=== PATIENT | female | born 1955 | race African-American/Black ===

== ENCOUNTER → 2017-08-10 | Day surgery (SDC) | payer MEDICAID ==
[~2017-08-10] MED LIST: FAMO-136 PO; FESO4TAB PO; ISOVUE-M 200 20 ML VIAL IT ONE; LEVO75 PO; NAPR220C15 PO; PROP40TA7 PO
[2017-08-10 09:24] LABS: PARTIAL THROMBOPLASTIN TIME 25.9 SEC (26.3-35.5); PROTHROMBIN TIME 10.5 SEC (9.6-11.6)
== END | disposition home or self-care (01) ==
LOC: RAH 07:34
PROVIDERS: ATTEND Neuromusculoskeletal Medicine & OMM
DX: M51.26 Other intervertebral disc displacement, lumbar region (principal); M96.1 Postlaminectomy syndrome, not elsewhere classified; G89.4 Chronic pain syndrome; Z98.890 Other specified postprocedural states; I10 Essential (primary) hypertension; Z68.33 Body mass index [BMI] 33.0-33.9, adult; Z79.899 Other long term (current) drug therapy; R79.1 Abnormal coagulation profile
CPT/HCPCS: 36415; 62304; 72129; 72132; 85610; 85730; Q9966; 62303

== ENCOUNTER → 2017-10-04 | Outpatient (CLI) | payer MEDICAID ==
[~2017-10-04] MED LIST changes: -ISOVUE-M 200 20 ML VIAL IT ONE
== END | disposition home or self-care (01) ==
LOC: RAH 15:12
PROVIDERS: ATTEND Neuromusculoskeletal Medicine & OMM
DX: M54.6 Pain in thoracic spine (principal); M96.1 Postlaminectomy syndrome, not elsewhere classified
CPT/HCPCS: 72080

== ENCOUNTER → 2018-07-11 | Outpatient (CLI) | payer MEDICARE | END | disposition home or self-care (01) | LOC: RAH 13:10 | PROVIDERS: ATTEND Neuromusculoskeletal Medicine & OMM | DX: M47.896 Other spondylosis, lumbar region (principal); M51.26 Other intervertebral disc displacement, lumbar region; M25.78 Osteophyte, vertebrae | CPT/HCPCS: 72131 ==

== ENCOUNTER 2018-08-10 10:43 | Emergency (ER) | payer MEDICARE | END 2018-08-10 13:34 | disposition home or self-care (01) | LOC: EDH 10:43 | DX: M54.16 Radiculopathy, lumbar region (principal); M79.661 Pain in right lower leg; I10 Essential (primary) hypertension; Z90.710 Acquired absence of both cervix and uterus; Z96.649 Presence of unspecified artificial hip joint | CPT/HCPCS: 72100; 93971 ==

== ENCOUNTER → 2018-09-22 | Outpatient (CLI) | payer MEDICARE | END | disposition home or self-care (01) | LOC: RAH 14:38 | PROVIDERS: ATTEND Neuromusculoskeletal Medicine & OMM | DX: M16.12 Unilateral primary osteoarthritis, left hip (principal); M47.818 Spondylosis without myelopathy or radiculopathy, sacral and sacrococcygeal region | CPT/HCPCS: 72200; 73521 ==

== ENCOUNTER 2020-08-28 16:14 | Observation (INO) | payer MEDICARE ==
[~2020-08-28] VITALS: Ht 170.2 cm; Wt 109.9 kg
[2020-08-28 16:43] LABS: BASOPHILS % (AUTO) 0.3 % (0.0-5.0); EOSINOPHILS % (AUTO) 3.3 % (0.0-8.0); HEMATOCRIT 23.1 % (36-48); LYMPHOCYTES % (AUTO) 22.3 % (21.0-51.0); MEAN CORPUSCULAR HEMOGLOBIN 24.5 pg (27.0-33.0); MEAN CORPUSCULAR HGB CONC 29.4 g/dL (32.0-36.0); MEAN CORPUSCULAR VOLUME 83.4 fL (79-99); MONOCYTES % (AUTO) 12.5 % (3.0-13.0); NEUTROPHILS % (AUTO) 61.2 % (40.0-77.0); PLATELET COUNT (AUTO) 305 K/uL (130-400); RED BLOOD CELL COUNT(AUTO) 2.77 MIL/uL (4.00-5.50); RED CELL DISTRIBUTION WIDTH 16.9 % (11.0-15.5); WHITE BLOOD COUNT (AUTO) 7.6 K/uL (4.8-10.8)
[2020-08-28 16:53] LABS: APPEARANCE,URINE Clear (CLEAR); BILIRUBIN,URINE Negative (NEGATIVE); COLOR,URINE Yellow (YELLOW); GLUCOSE, URINE (UA) Negative (NEGATIVE); KETONES,URINE Negative (NEGATIVE); LEUKOCYTE ESTERASE ,URINE Small (NEGATIVE); NITRATE,URINE Negative (NEGATIVE); OCCULT BLOOD,URINE Negative (NEGATIVE); PH,URINE 6.5 (5.0-8.0); PROTEIN,URINE Negative (NEGATIVE); UROBILINOGEN,URINE 0.2 mg/dL (0.2-1.0)
[2020-08-28 16:54] LABS: CREATININE 1.1 mg/dL (0.5-1.5); POTASSIUM 4.1 mmol/L (3.5-5.1)
[2020-08-28 16:58] LABS: ALBUMIN 3.7 g/dL (3.5-5.0); BILIRUBIN,TOTAL 0.2 mg/dL (0.2-1.0); TOTAL PROTEIN, SERUM 7.5 g/dL (6.0-8.3)
[2020-08-28 16:59] LABS: INR 1.05 (0.85-1.15); PROTHROMBIN TIME 11.4 SEC (9.6-11.6)
[2020-08-28 17:00] LABS: BACTERIA,URINE Few /HPF (None Seen); RBC,URINE 0-1 /HPF (0-1); SQUAMOUS EPITHELIAL CELL,UR Moderate /HPF (0-2)
[2020-08-28 17:00] LABS: PARTIAL THROMBOPLASTIN TIME 21.9 SEC (26.3-35.5)
[2020-08-28] MEDS ORDERED: SODIUM CHLORIDE 0.9% 250 ML IV ONE (18:36)
[2020-08-28 19:19] LABS: RETICULOCYTE % (AUTO) 4.07 % (0.42-2.23)
[2020-08-28] MEDS ORDERED: DiphenhydrAMINE HCL 50 MG/ML VIAL IV PRN (22:15)
[2020-08-28] MEDS: SODIUM CHLORIDE 0.9% 1000ML 1,000 ML IV SCH (22:15)
[2020-08-28] MEDS ORDERED: ZOLPIDEM TARTRATE 5 MG TAB PO PRN (22:15)
[2020-08-28] MEDS ORDERED: LACTULOSE 20 GM/30 ML UDCUP PO PRN (22:15)
[2020-08-28] MEDS ORDERED: ONDANSETRON HCL 4 MG/2 ML VIAL IV PRN (22:15)
[2020-08-29 00:52] LABS: BASOPHILS % (AUTO) 0.3 % (0.0-5.0); EOSINOPHILS % (AUTO) 3.5 % (0.0-8.0); LYMPHOCYTES % (AUTO) 22.7 % (21.0-51.0); MEAN CORPUSCULAR HEMOGLOBIN 25.5 pg (27.0-33.0); MEAN CORPUSCULAR HGB CONC 30.4 g/dL (32.0-36.0); MEAN CORPUSCULAR VOLUME 83.9 fL (79-99); MONOCYTES % (AUTO) 10.1 % (3.0-13.0); NEUTROPHILS % (AUTO) 63.1 % (40.0-77.0); PLATELET COUNT (AUTO) 284 K/uL (130-400); RED BLOOD CELL COUNT(AUTO) 2.86 MIL/uL (4.00-5.50); RED CELL DISTRIBUTION WIDTH 16.9 % (11.0-15.5); WHITE BLOOD COUNT (AUTO) 7.7 K/uL (4.8-10.8)
[2020-08-29] MEDS: PROPRANOLOL HCL 20 MG TAB PO SCH ×2 (03:00→16:10)
[2020-08-29] MEDS ORDERED: ACETAMINOPHEN 325 MG TAB ONE (03:27)
[2020-08-29] MEDS ORDERED: SODIUM CHLORIDE 0.9% 1000ML 1,000 ML IV ONE (04:03)
[2020-08-29 05:29] LABS: BASOPHILS % (AUTO) 0.4 % (0.0-5.0); EOSINOPHILS % (AUTO) 3.5 % (0.0-8.0); HEMATOCRIT 24.6 % (36-48); LYMPHOCYTES % (AUTO) 24.7 % (21.0-51.0); MEAN CORPUSCULAR HGB CONC 29.7 g/dL (32.0-36.0); MEAN CORPUSCULAR VOLUME 84.2 fL (79-99); MONOCYTES % (AUTO) 11.5 % (3.0-13.0); NEUTROPHILS % (AUTO) 59.5 % (40.0-77.0); NUCLEATED RED BLOOD CELLS 0.3 % (0.0-0.19); PLATELET COUNT (AUTO) 197 K/uL (130-400); RED BLOOD CELL COUNT(AUTO) 2.92 MIL/uL (4.00-5.50); RED CELL DISTRIBUTION WIDTH 16.7 % (11.0-15.5); WHITE BLOOD COUNT (AUTO) 7.4 K/uL (4.8-10.8)
[2020-08-29] MEDS: SODIUM CHLORIDE 0.9% 1000ML 1,000 ML IV SCH ×2 (08:15→18:15)
[2020-08-29 08:35] VITALS: BP 150/80
[2020-08-29] MEDS: PANTOPRAZOLE 40 MG/VIAL IVP SCH (09:00)
[2020-08-29 11:53] VITALS: BP 157/82
[2020-08-29 11:58] LABS: HEMATOCRIT 26.6 % (36-48)
[2020-08-29] MEDS ORDERED: BUPR100T13 PO (11:58)
[2020-08-29] MEDS ORDERED: ATOR10 PO (11:58)
[2020-08-29 16:52] VITALS: BP 159/75
[2020-08-29 19:42] VITALS: BP 150/81
[2020-08-29] MEDS ORDERED: BISACODYL 5 MG TABLET.DR PO SCH (20:30)
[2020-08-29] MEDS: ACETAMINOPHEN 325 MG TAB PO PRN (22:27)
[2020-08-29] MEDS ORDERED: MAGNESIUM CITRATE 296 ML SOLUTION PO ONE (22:30)
[2020-08-29 23:44] VITALS: BP 158/75
[2020-08-30] VITALS (17 sets, daily range): BP systolic 112–161; BP diastolic 40–93
[2020-08-30] MEDS ORDERED: MAGNESIUM CITRATE 296 ML SOLUTION PO ONE (00:30)
[2020-08-30] MEDS: PROPRANOLOL HCL 20 MG TAB PO SCH ×2 (03:45→16:31)
[2020-08-30] MEDS: SODIUM CHLORIDE 0.9% 1000ML 1,000 ML IV SCH (04:13)
[2020-08-30 06:00] LABS: HEMATOCRIT 26.9 % (36-48)
[2020-08-30 06:13] LABS: % IRON SATURATION 3.6 % (22-44)
[2020-08-30 06:35] LABS: CREATININE 0.9 mg/dL (0.5-1.5); POTASSIUM 3.9 mmol/L (3.5-5.1)
[2020-08-30] MEDS: ACETAMINOPHEN 325 MG TAB PO PRN (08:22)
[2020-08-30] MEDS ORDERED: MIDAZOLAM HCL 1 MG/ML 2ML VIAL ONE (09:59)
[2020-08-30] MEDS ORDERED: FENTANYL CITRATE PF 50 MCG/1 ML 2ML VIAL ONE (09:59)
[2020-08-30] MEDS ORDERED: FLUMAZENIL 0.1MG/1ML 5ML VIAL IV ONE (09:59)
[2020-08-30] MEDS ORDERED: MIDAZOLAM HCL 1 MG/ML 2ML VIAL IV SCH (10:45)
[2020-08-30] MEDS ORDERED: FENTANYL CITRATE PF 50 MCG/1 ML 2ML VIAL IVP SCH (10:45)
[2020-08-30] MEDS ORDERED: SUMA25TA9 PO (11:38)
[2020-08-30] MEDS ORDERED: SUMATRIPTAN SUCCINATE 25 MG TABLET PO SCH (12:00)
[2020-08-30] MEDS: PANTOPRAZOLE 40 MG/VIAL IVP SCH (12:12)
[2020-08-30] MEDS ORDERED: SUMATRIPTAN SUCCINATE 25 MG TABLET PO PRN (12:15)
[2020-08-30] MEDS ORDERED: PANT40TA PO (14:26)
[2020-08-30] MEDS ORDERED: SUCR1TAB28 PO (15:14)
== END 2020-08-30 17:57 | disposition home or self-care (01) ==
LOC: EDH 16:14 → INTOOBSV 22:04 → EDHIP 22:04 → OBSVTOIN 22:04 → 3BH 08-29 08:28
PROVIDERS: ADMIT Internal Medicine; ATTEND Internal Medicine
DX: K25.9 Gastric ulcer, unspecified as acute or chronic, without hemorrhage or perforation (principal); Z20.822 Contact with and (suspected) exposure to COVID-19; D64.9 Anemia, unspecified; K29.70 Gastritis, unspecified, without bleeding; K57.30 Diverticulosis of large intestine without perforation or abscess without bleeding; I10 Essential (primary) hypertension; R42 Dizziness and giddiness; M19.90 Unspecified osteoarthritis, unspecified site; E03.9 Hypothyroidism, unspecified; E66.01 Morbid (severe) obesity due to excess calories; Z96.652 Presence of left artificial knee joint; Z79.899 Other long term (current) drug therapy; Z68.37 Body mass index [BMI] 37.0-37.9, adult
CPT/HCPCS: 36415 ×3; 36430; 43239; 45378; 80048; 80053; 81001; 82607; 83010; 83540; 83550; 83615; 83880; 84484; 85014 ×2; 85018 ×2; 85025 ×3; 85045; 85610; 85730; 86850; 86900; 86901; 86923; 87426; 88305; 88342; 96361 ×2; 96374; 96376; 99285; A4606; A4620; C9113 ×3; G0378 ×42; J2250; J3010; J7030; J7050; P9016; U0003; J3490

== ENCOUNTER → 2023-10-17 | Outpatient (CLI) | payer OTHER, MEDICARE ==
[~2023-10-17] MED LIST changes: +ATOR10 PO; +BUPR100T13 PO; -FAMO-136 PO; -NAPR220C15 PO; +PANT40TA PO; +SUCR1TAB28 PO; +SUMA25TA9 PO
[2023-10-17] MEDS: REGADENOSON 0.4 MG/5 ML PF SYG IVP ONE (14:51)
== END | disposition home or self-care (01) ==
LOC: SHCH 09:03
PROVIDERS: ATTEND Internal Medicine Cardiovascular Disease
DX: I25.10 Atherosclerotic heart disease of native coronary artery without angina pectoris (principal); I25.42 Coronary artery dissection
CPT/HCPCS: 78452; 96374; 93017; J2785; A9500 ×2

== ENCOUNTER → 2024-01-13 | Outpatient (CLI) | payer OTHER, MEDICARE ==
[2024-01-13 15:40] LABS: ALBUMIN 3.5 g/dL (3.5-5.0); BILIRUBIN,TOTAL 0.4 mg/dL (0.2-1.0); CREATININE 0.7 mg/dL (0.5-1.0); POTASSIUM 3.8 mmol/L (3.5-5.1); TOTAL PROTEIN, SERUM 7.4 g/dL (6.0-8.3)
== END | disposition home or self-care (01) ==
LOC: LAB 11:40
PROVIDERS: ATTEND Internal Medicine Cardiovascular Disease
DX: I10 Essential (primary) hypertension (principal); I25.84 Coronary atherosclerosis due to calcified coronary lesion
CPT/HCPCS: 36415; 80053

== ENCOUNTER 2024-12-04 13:53 | Emergency (ER) | payer OTHER, MEDICAID ==
[~2024-12-04] VITALS: Ht 170.2 cm; Wt 90.7 kg
--- NOTE | 2024-12-04 14:07 | EKG ---
[facility] Test Date: 2024-12-04 Test Time: 14:03:53 Pat Name: TIO ROBLES Department: ED Room: Gender: F Vp Care Management: [id number] : 1955 Requested By: BRADLEY PALACIO Order Number: [id number] Reading MD: Barron Lawson Measurements Intervals [place] Rate: 78 P: 32 [place]: 196 QRS: -42 QRSD: 109 T: 104 QT: 389 QTc: 444 Interpretive Statements Sinus rhythm LVH with secondary repolarization abnormality No previous ECG available for comparison Electronically Signed On 12-04-2024 16:19:06 CDT by Barron Lawson Please click the below link to view image of tracing.
--- NOTE | 2024-12-04 14:35 | HMCIMG ---
Exam Type: CHEST 1VW Clinical Information: cp Comparison: None Findings: The lungs are clear. The heart is normal in size. There is tortuosity of the aorta which artifactually enlarges the mediastinum. No actual mediastinal pathology is detected. IMPRESSION: Tortuous aorta. Clear lungs.
[2024-12-04 14:39] LABS: APPEARANCE,URINE CLOUDY (CLEAR); BILIRUBIN,URINE NEGATIVE (NEGATIVE); COLOR,URINE LIGHT-YELLOW (YELLOW); GLUCOSE, URINE (UA) NEGATIVE (NEGATIVE); KETONES,URINE NEGATIVE (NEGATIVE); LEUKOCYTE ESTERASE ,URINE 250 Leu/uL (NEGATIVE); NITRATE,URINE NEGATIVE (NEGATIVE); OCCULT BLOOD,URINE NEGATIVE (NEGATIVE); PH,URINE 5.5 (5.0-8.0); PROTEIN,URINE NEGATIVE (NEGATIVE); UROBILINOGEN,URINE 0.2 mg/dL (0.2-1.0)
[2024-12-04 14:43] LABS: ADD UA MICROSCOPIC YES
[2024-12-04 14:45] LABS: BACTERIA,URINE RARE /HPF (None Seen); MUCUS,URINE RARE LPF (None Seen); SQUAMOUS EPITHELIAL CELL,UR FEW /HPF (0-2)
[2024-12-04 14:50] LABS: BASOPHILS # (AUTO) 0.04 K/uL (0.00-0.20); BASOPHILS % (AUTO) 0.6 % (0.0-5.0); EOSINOPHILS # (AUTO) 0.15 K/uL (0.00-0.70); EOSINOPHILS % (AUTO) 2.1 % (0.0-8.0); IMMATURE GRANULOCYTE ABSOLUTE 0.02 K/uL (0-1); LYMPHOCYTES # (AUTO) 2.2 K/uL (1.0-4.8); LYMPHOCYTES % (AUTO) 31.1 % (21.0-51.0); MEAN CORPUSCULAR HGB CONC 32.4 g/dL (32.0-36.0); MEAN CORPUSCULAR VOLUME 89.6 fL (79-99); MONOCYTES % (AUTO) 14.1 % (3.0-13.0); NEUTROPHILS # (AUTO) 3.7 K/uL (1.8-7.7); NEUTROPHILS % (AUTO) 51.8 % (40.0-77.0); PLATELET COUNT (AUTO) 256 K/uL (130-400); RED BLOOD CELL COUNT(AUTO) 4.69 MIL/uL (4.00-5.50); RED CELL DISTRIBUTION WIDTH 13.3 % (11.0-15.5); WHITE BLOOD COUNT (AUTO) 7.2 K/uL (4.8-10.8)
[2024-12-04 15:01] LABS: CREATININE 0.9 mg/dL (0.5-1.0); POTASSIUM 3.5 mmol/L (3.5-5.1)
[2024-12-04 15:02] LABS: INR 1.03 (0.85-1.15); PROTHROMBIN TIME 10.9 SEC (9.6-11.6)
[2024-12-04 15:08] LABS: MAGNESIUM 1.9 mg/dL (1.80-2.40)
[2024-12-04 15:14] LABS: B-TYPE NATRIURETIC PEPTIDE 103 pg/mL (0-100)
--- NOTE | 2024-12-04 16:26 | ERN ---
General Chief Complaint: Abnormal Labs Stated Complaint: SENT BY Time Seen by MD: 13:57 Source: patient History of Present Illness Initial Comments PATIENT IS A 69-YEAR-OLD FEMALE SENT IN BY PCP FOR ABNORMAL LABS. PER PCP DR. SERRANO PATIENT HAD LABS DRAWN TWO DAYS AGO AND AN ELEVATED TROPONIN WAS NOTICED. PATIENT IS A NOT HAVING CHEST PAIN BUT IS HERE FOR FURTHER EVALUATION. Allergies: Coded Allergies: No Known Drug Allergies (Unverified Allergy, Unknown, 08/10/17) Home Meds Active Scripts Sucralfate (Carafate) 1 Gm Tablet, 1 GM PO TID for 7 Days, #21 TAB Prov:KUMAR CAPELLAN APRN 08/30/20 Pantoprazole Sodium (Protonix) 40 Mg Tablet., 40 MG PO DAILY for gastritis for 30 Days, #30 TAB 0 Refills Prov:KUMAR CAPELLAN APRN 08/30/20 Reported Medications Sumatriptan Succinate (Sumatriptan Succinate) 25 Mg Tablet, 25 MG PO DAILY for MIGRANE, TAB 08/30/20 Atorvastatin Calcium (LIPITOR) 10 Mg Tab, 10 MG PO HS, TAB 08/29/20 Bupropion HCl (Bupropion HCl) 100 Mg Tablet, 100 MG PO BID, TAB 08/29/20 Fesoterodine Fumarate (Toviaz) 4 Mg Tab.er.24h, 4 MG PO DAILY PRN for AD, TAB 11/21/15 Levothyroxine Sodium (Levothroid/Synthroid) 75 Mcg Tab, 75 MCG PO DAILY, TAB 11/21/15 Propranolol HCl (Propranolol HCl) 40 Mg Tablet, 40 MG PO BID, TAB 11/21/15 Past Medical History Past Medical History: Diabetes-Type II, High Cholesterol, Heart Disease, Hypertension Past Surgical History: Hysterectomy, Other ROS Dictation CONSTITUTIONAL: NO CHILLS, NO FEVER, NO WEAKNESS, NO DIAPHORESIS, NO MALAISE. HEAD/FACE: NO SIGNS OF TRAUMA. EENT: NO EYE PAIN, NO BLURRED VISION, NO TEARING, NO DOUBLE VISION, NO EAR PAIN, NO EAR DISCHARGE, NO NOSE PAIN, NO NASAL CONGESTION, NO THROAT PAIN, NO THROAT SWELLING, NO MOUTH PAIN. RESPIRATORY: NO COUGH, NO ORTHOPNEA, NO SOB, NO STRIDOR, NO WHEEZING. CARDIOVASCULAR: NO CHEST PAIN, NO EDEMA, NO PALPITATIONS, NO SYNCOPE. GASTROINTESTINAL/ABDOMINAL: NO ABDOMINAL PAIN, NO CONSTIPATION, NO DIARRHEA, NO NAUSEA, NO VOMITING. GENITOURINARY: NO ABNORMAL DISCHARGE, NO DYSURIA, NO FREQUENT URINATION, NO HEMATURIA. NO COMPLAINTS OF PAIN IN THE GENITALS. MUSCULOSKELETAL: NO BACK PAIN, NO GOUT, NO JOINT PAIN, NO JOINT SWELLING, NO MUSCLE PAIN, NO MUSCLE STIFFNESS, NO NECK PAIN. INTEGUMENTARY: NO CHANGE IN COLOR, NO CHANGE IN HAIR/NAILS, NO DRYNESS, NO LESION, NO LUMPS, NO RASH. NEUROLOGICAL/PSYCH: NO ANXIETY, NOT DEPRESSED, NO EMOTIONAL PROBLEM, NO H EADACHE, NO NUMBNESS, NO PRE-EXISTING DEFICIT, NO HISTORY OF SEIZURES, NO TREMORS, NO WEAKNESS. HEMATOLOGIC/LYMPHATIC: NOT ANEMIC, NO HISTORY OF BLOOD CLOTS, NO APPARENT BLEEDING, NO BRUISING, GLANDS NOT SWOLLEN. ALL SYSTEMS NEGATIVE, EXCEPT NOTED. Physical Exam Physical Exam Dictation VITAL SIGNS: REVIEWED. GENERAL APPEARANCE: ALERT, ORIENTED X3, NO ACUTE DISTRESS, OBESE. HEAD AND FACE: NON-TRAUMATIC. EYES: PERRL, PINK CONJUNCTIVAS, EYELID NO TRAUMA, ANTERIOR CHAMBER CLEAR. EARS: PINNAS INTACT AND NO SIGNS OF TRAUMA OR ERYTHEMA. EAR CANALS CLEAR AND NO DISCHARGE. TMS NO ERYTHEMA. NOSE: NO DISCHARGE, NO BLEEDING. OROPHARYNX: MOUTH NORMAL, TEETH NO CARIES, TONGUE PINK. PHARYNX CLEAR, NO ERYTHEMA. TONSILS NO EXUDATES, NO ABSCESSES NOTED. MUCOUS MEMBRANE MOIST. NECK: SUPPLE, NON-TENDER, NO THYROMEGALY, NO MASSES, NO JVD, NO BRUITS. BREAST: DEFERRED. CHEST: NO TENDERNESS, NO CREPITUS, NO PARADOXICAL MOVEMENT, NO RETRACTIONS. LUNGS: CLEAR, WELL-VENTILATED, SYMMETRIC, NO RALES, NO WHEEZING, NO RHONCHI, NO STRIDOR, GOOD BREATH SOUNDS BILATERALLY. HEART: REGULAR RATE, REGULAR RHYTHM, NO MURMUR, NO GALLOPS. VASCULAR: NO PERIPHERAL EDEMA. ABDOMEN: SOFT, POSITIVE BOWEL SOUNDS, NONDISTENDED, NO GUARDING, NONTENDER, NO REBOUND, NO MASSES NO HEPATOMEGALY, NO SPLENOMEGALY, NO MAJANO'S SIGN, NO HERNIAS. RECTAL: DEFERRED. GENITAL: DEFERRED. NEUROLOGICAL: NORMAL SPEECH, GROSS MOTOR FUNCTION INTACT, GROSS SENSORY FUNCTION INTACT. MUSCULOSKELETAL: NECK NONTENDER, FULL RANGE OF MOTION, BACK NONTENDER, FULL RANGE OF MOTION. EXTREMITIES: NONTENDER, FULL RANGE OF MOTION. SKIN: COLOR PINK, DRY, NO TURGOR, NO RASH, NO LACERATIONS, NO ABRASIONS, NO CONTUSIONS. LYMPHATICS: DEFERRED. Results Laboratory and Microbiology Lab and Micro Result Laboratory Tests Test 12/04/24 14:26 12/04/24 14:39 12/04/24 15:36 Urine Color LIGHT-YELLOW (YELLOW) Urine Appearance CLOUDY (CLEAR) H Urine pH 5.5 (5.0-8.0) Urine Specific [place] 1.012 (1.001-1.031) Urine Protein NEGATIVE mg/dL (NEGATIVE) Urine Glucose (UA) NEGATIVE mg/dL (NEGATIVE) Urine Ketones NEGATIVE mg/dL (NEGATIVE) Urine Occult Blood NEGATIVE (NEGATIVE) Urine Nitrate NEGATIVE (NEGATIVE) Urine Bilirubin NEGATIVE mg/dL (NEGATIVE) Urine Urobilinogen 0.2 mg/dL (0.2-1.0) Urine Leukocyte Esterase 250 Juan/uL (NEGATIVE) H Urine RBC 2-5 /HPF (0-1) H Urine WBC 6-10 /HPF (0-1) H Urine Squamous Epithelial Cells FEW /HPF (0-2) Urine Bacteria RARE /HPF (None Seen) White Blood Count 7.2 K/uL (4.8-10.8) Red Blood Count 4.69 MIL/uL (4.00-5.50) Hemoglobin 13.6 g/dL (12.0-16.0) Hematocrit 42.0 % (36-48) Mean Corpuscular Volume 89.6 fL (79-99) Mean Corpuscular Hemoglobin 29.0 pg (27.0-33.0) Mean Corpuscular Hemoglobin Concent 32.4 g/dL (32.0-36.0) Red Cell Distribution Width 13.3 % (11.0-15.5) Platelet Count 256 K/uL (130-400) Mean Platelet Volume 11.8 fL (7.5-10.5) H Immature Granulocyte % (Auto) 0.3 % (0-1) Neutrophils (%) (Auto) 51.8 % (40.0-77.0) Lymphocytes (%) (Auto) 31.1 % (21.0-51.0) Monocytes (%) (Auto) 14.1 % (3.0-13.0) H Eosinophils (%) (Auto) 2.1 % (0.0-8.0) Basophils (%) (Auto) 0.6 % (0.0-5.0) Neutrophils # (Auto) 3.7 K/uL (1.8-7.7) Lymphocytes # (Auto) 2.2 K/uL (1.0-4.8) Monocytes # (Auto) 1.0 K/uL (0.1-1.0) Eosinophils # (Auto) 0.15 K/uL (0.00-0.70) Basophils # (Auto) 0.04 K/uL (0.00-0.20) Absolute Immature Granulocyte (auto 0.02 K/uL (0-1) Nucleated Red Blood Cells 0.0 % (0.0-0.19) Prothrombin Time 10.9 SEC (9.6-11.6) Prothromb Time International Ratio 1.03 (0.85-1.15) Sodium Level 136 mmol/L (136-145) Potassium Level 3.5 mmol/L (3.5-5.1) Chloride Level 102 mmol/L (101-111) Carbon Dioxide Level 28 mmol/L (21-32) Blood Urea Nitrogen 18 mg/dL (7-18) Creatinine 0.9 mg/dL (0.5-1.0) Glomerular Filtration Rate Calc 68 mL/min (>90) Random Glucose 92 mg/dL (70-105) Total Calcium 9.8 mg/dL (8.5-10.1) Magnesium Level 1.90 mg/dL (1.80-2.40) Total Creatine Kinase 219 U/L (21-232) Troponin I High Sensitivity 36.2 ng/L (4-50) 41 ng/L (4-50) B-Type Natriuretic Peptide 103 pg/mL (0-100) H Triglycerides Level 131 mg/dL (30-200) Cholesterol Level 165 mg/dL (<200) LDL Cholesterol 72 mg/dL (0-99) HDL Cholesterol 137 mg/dL (35-85) H EKG/XRAY/US/CT/MRI EKG Comment 12/04/2024 TIME 2:03 P.M. VENTRICULAR RATE 78 SINUS RHYTHM [address] WAVE ELEVATION OR DEPRESSION X-RAY Comment [place] [id number] [place] [id number] IMAGING REPORT Signed PATIENT: TIO ROBLES MR#: [id number] : 1955 SEX: F AGE: 69 LOCATION: ED ORDER [id number] STATUS: REG ER REPORT#: [id number] SERVICE 1357 REASON: cp ORDERING PHYSICIAN: BRADLEY PALACIO MD PROCEDURE: CXR1VW - CHEST 1VW Exam Type: CHEST 1VW Clinical Information: cp Comparison: None Findings: The lungs are clear. The heart is normal in size. There is tortuosity of the aorta which artifactually enlarges the mediastinum. No actual mediastinal pathology is detected. IMPRESSION: Tortuous aorta. Clear lungs. DICTATED BY: CANDICE LIGHT MD DATE: 12/04/241431 ELECTRONICALLY SIGNED BY: CANDICE LIGHT MD DATE: 12/04/241434 [place] [address] IMAGING REPORT Signed PATIENT: TIO ROBLES MR#: [id number] : 1955 SEX: F AGE: 69 LOCATION: ED ORDER [id number] STATUS: REG ER REPORT#: [id number] SERVICE 1632 REASON: abnormal chest xray ORDERING PHYSICIAN: BRADLEY PALACIO MD PROCEDURE: CHEST WO - CT CHEST W/O CONTRAST CT NONCONTRAST CHEST Comparison Study: none History: abnormal chest xray Technique: Helical CT of the chest without IV contrast at 5 mm collimation. Coronal and sagittal reformations also done. CT Dose Index (CTDI): 2.38 mGy Dose Length Product (DLP): 94.8 total mGy-cm Findings: The airway is intact. The trachea and major bronchi are unremarkable. The chest exam shows no pulmonary nodules or masses. No significant pulmonary parenchymal abnormalities are noted. No pulmonary infiltrates or mass lesions are seen. No pleural effusions are identified. There is no pneumothorax. There is no evidence of pneumomediastinum. The nonenhanced exam of the cindy and mediastinum is unremarkable. No evidence of hilar enlargement is seen. The aorta shows no aneurysmal dilatation or significant atheromatous calcification. No significant brachiocephalic vascular abnormalities are seen. The heart is unremarkable. It is not enlarged. No significant coronary arterial calcifications are seen. There is no pericardial effusion. The rib cage appears unremarkable. The soft tissues of the chest wall are unremarkable. The dorsal spine shows no significant abnormalities. IMPRESSION: NORMAL CT OF THE CHEST WITHOUT CONTRAST. This study was performed using dose reduction techniques to include automated exposure control and/or adjustment of the mA and/or kV according to patient size. DICTATED BY: CANDICE LIGHT MD DATE: 12/04/241654 ELECTRONICALLY SIGNED BY: CANDICE LIGHT MD DATE: 12/04/241657 MDM MDM: Differential diagnosis: Abnormal labs, chest pain, WELLNESS EXAM Rationale: Tests considered and ordered secondary to shared decision making include: Previous outside records reviewed: Old ER visits. Risk of complication and/or morbidity or mortality of patient management: None PATIENT IS A 69-YEAR-OLD FEMALE COMING IN DUE TO ABNORMAL LABS. ARE REPEATED CARDIAC ENZYMES ARE WITHIN NORMAL LIMITS. ABNORMAL CHEST X-RAY WAS EVALUATED WITH A CT NO ACUTE FINDINGS WERE PRESENT. I DID RELAY LABORATORY FINDINGS TO PCP DR. SERRANO SHE DOES AGREE WITH HAVING PATIENT FOLLOW UP OUTPATIENT AT OUR CLINIC. THROUGHOUT ER VISIT PATIENT HAS BEEN STABLE NEVER COMPLAINING OF CHEST PAIN. ED Course Orders Procedure Category Date Status Time Cbc With Differential LAB 12/04/24 Complete 13:57 Prothrombin Time With LAB 12/04/24 Complete INR 13:57 B-Type Natriuretic LAB 12/04/24 Complete Peptide 13:57 Lipid Panel LAB 12/04/24 Complete 13:57 Chest 1vw RAD 12/04/24 Resulted 13:57 12 Lead Ekg Tracing- EKG 12/04/24 Resulted Technical 13:57 Magnesium LAB 12/04/24 Complete 13:57 Urinalysis Profile LAB 12/04/24 Complete 13:57 Basic Metabolic Panel LAB 12/04/24 Complete 13:57 Cardiac Panel LAB 12/04/24 Complete 13:57 Culture Urine JOÃO 12/04/24 In Process 14:43 Troponin I High LAB 12/04/24 Complete Sensitivity 15:29 Ct Chest W/O Contrast CT 12/04/24 Resulted 16:32 Vital Signs Date Time Temp Pulse Resp B/P (MAP) Pulse Ox O2 Delivery O2 Flow Rate FiO2 12/04/24 16:00 97.3 73 20 137/77 93 Room Air* 0 21 12/04/24 15:00 97.5 74 24 139/79 92 Room Air* 0 21 12/04/24 14:08 98.4 78 20 143/81 94 Room Air DX & DISP Disposition: Discharge Departure Impression: Primary Impression: Wellness examination Condition: Stable Additional Instructions: YOU HAVE BEEN REVIEWED IN THE EMERGENCY DEPARTMENT AT [facility] AFTER PRESENTING WITH CHEST PAIN. AFTER CONSIDERING YOUR HISTORY, YOUR RISK FACTORS, YOUR EKG AND YOUR BLOOD TEST TROPONINS, HAVE BEEN FOUND TO BE AT VERY LOW RISK LESS THAN (1 IN 100) OF HAVING A MAJOR ADVERSE CARDIAC EVENT (LIKE HEART ATTACK) IN THE NEAR FUTURE. IN THE " LOW RISK" GROUP, THE RISKS OF DOING FURTHER TESTS AND TREATMENT THE INPATIENT OUTWEIGHS THE BENEFITS. IN MANY PATIENTS IN THE LOW RISK GROUP FOR THE TEST OF ANY SORT OR UNNECESSARY, HOWEVER HE SHOULD DISCUSS THIS FURTHER WITH HIS GENERAL PRACTITIONER WHO WILL UNDERSTAND THE MEDICAL AND PERSONAL BACKGROUNDS BETTER. BECAUSE WE HAVE NEVER DECLARED YOU" NO RISK" WE WOULD SUGGEST. 1 RETURNING FOR MEDICAL REVIEW IF YOU HAVE FURTHER EPISODES OF CHEST PAIN/ARM PAIN OR OTHER CONCERNING SYMPTOMS LIKE DIZZINESS, COLLAPSE, PALPITATIONS OR SHORTNESS OF BREATH. 2. FOLLOWING UP WITH YOUR LOCAL DOCTOR WHO WILL CONSIDER THE NEED FOR FURTHER TESTING AND WILL ALSO ENSURE THAT ANY MODIFIABLE RISK FACTORS YOU MAY HAVE FOR HEART DISEASE ARE OPTIMALLY MANAGED. PATIENT WILL BE DISCHARGED IN STABLE CONDITION AT THE MOMENT DISCHARGE PATIENT STATES , NO CHEST PAIN Referrals: ANABEL SERRANO MD (PCP) Time of Disposition: 17:18 BRADLEY PALACIO MD December 04, 2024 16:26
--- NOTE | 2024-12-04 16:58 | HMCIMG ---
CT NONCONTRAST CHEST Comparison Study: none History: abnormal chest xray Technique: Helical CT of the chest without IV contrast at 5 mm collimation. Coronal and sagittal reformations also done. CT Dose Index (CTDI): 2.38 mGy Dose Length Product (DLP): 94.8 total mGy-cm Findings: The airway is intact. The trachea and major bronchi are unremarkable. The chest exam shows no pulmonary nodules or masses. No significant pulmonary parenchymal abnormalities are noted. No pulmonary infiltrates or mass lesions are seen. No pleural effusions are identified. There is no pneumothorax. There is no evidence of pneumomediastinum. The nonenhanced exam of the cindy and mediastinum is unremarkable. No evidence of hilar enlargement is seen. The aorta shows no aneurysmal dilatation or significant atheromatous calcification. No significant brachiocephalic vascular abnormalities are seen. The heart is unremarkable. It is not enlarged. No significant coronary arterial calcifications are seen. There is no pericardial effusion. The rib cage appears unremarkable. The soft tissues of the chest wall are unremarkable. The dorsal spine shows no significant abnormalities. IMPRESSION: NORMAL CT OF THE CHEST WITHOUT CONTRAST. This study was performed using dose reduction techniques to include automated exposure control and/or adjustment of the mA and/or kV according to patient size.
[2024-12-04 18:21] VITALS: BP 150/84; PULSE 73; RESP 20; TEMP 97.6; O2SAT 97
--- NOTE | 2024-12-04 18:22 | NUR ---
DC PATIENT WAS DC'D BY DR. PALACIO, I DC'D PATIENTS IV WITH CATH STILL IN PLACE AND APPLIED 2X2 GAUZE WITH TAPE, I EXPLAINED TO PATIENT TO FOLLOW UP WITH PCP PATIENT WAS TAKEN OUT OF ED VIA WHEELCHAIR BY TIMOTHY MUNOZ, NO COMPLICATIONS
== END 2024-12-04 18:14 | disposition home or self-care (01) ==
LOC: EDH 13:53
DX: R79.89 Other specified abnormal findings of blood chemistry (principal); E11.9 Type 2 diabetes mellitus without complications; E78.00 Pure hypercholesterolemia, unspecified; I10 Essential (primary) hypertension; Z79.890 Hormone replacement therapy; Z79.899 Other long term (current) drug therapy; Z90.710 Acquired absence of both cervix and uterus
CPT/HCPCS: 36415; 71045; 71250; 80048; 80061; 81001; 82550; 83735; 83880; 84484; 85025; 85610; 87086; 93005; 99285